=== PATIENT | female | born 1975 | race Native Hawaiian/Other Pacific Islander ===

== ENCOUNTER 2017-09-09 09:52 | Outpatient (CLI) | payer BC | END 2017-09-09 22:56 | disposition home or self-care (01) | LOC: US 09:52 | DX: R10.84 Generalized abdominal pain (principal); R10.2 Pelvic and perineal pain ==

== ENCOUNTER 2018-02-04 12:54 | Outpatient (CLI) | payer BC | END 2018-02-04 19:40 | disposition home or self-care (01) | LOC: MAMMO 12:54 | DX: Z12.31 Encounter for screening mammogram for malignant neoplasm of breast (principal) ==

== ENCOUNTER 2019-08-24 13:32 | Outpatient (CLI) | payer BC | END 2019-08-24 21:31 | disposition home or self-care (01) | LOC: LAB 13:32 | DX: N92.1 Excessive and frequent menstruation with irregular cycle (principal); R53.81 Other malaise; R53.83 Other fatigue | CPT/HCPCS: 82670; 83001; 84403 ==

== ENCOUNTER 2019-11-27 12:57 | Outpatient (CLI) | payer BC, OTHER | END 2019-11-27 23:30 | disposition home or self-care (01) | LOC: LAB 12:57 | DX: R19.7 Diarrhea, unspecified (principal); R11.0 Nausea; R51 Headache | CPT/HCPCS: 87635; G2023; U0002 ==

== ENCOUNTER 2020-01-02 08:23 | Outpatient (CLI) | payer BC | END 2020-01-02 20:34 | disposition home or self-care (01) | LOC: MAMMO 08:23 | DX: Z12.31 Encounter for screening mammogram for malignant neoplasm of breast (principal) ==

== ENCOUNTER 2021-04-16 14:09 | Outpatient (CLI) | payer BC | END 2021-04-16 19:19 | disposition home or self-care (01) | LOC: RAD 14:09 | PROVIDERS: ATTEND Nurse Practitioner Family | DX: M54.2 Cervicalgia (principal) ==

== ENCOUNTER → 2022-03-24 | Outpatient (CLI) | payer BC | LOC: CT 08:00 | PROVIDERS: ATTEND Nurse Practitioner Family | DX: R10.31 Right lower quadrant pain (principal) | CPT/HCPCS: Q9963 ==

== ENCOUNTER 2022-07-10 08:56 | Outpatient (CLI) | payer BC | END 2022-07-10 19:13 | disposition home or self-care (01) | LOC: MAMMO 08:56 | PROVIDERS: ATTEND Nurse Practitioner Family | DX: Z12.31 Encounter for screening mammogram for malignant neoplasm of breast (principal) ==

== ENCOUNTER 2022-10-19 08:10 | Outpatient (CLI) | payer BC | END 2022-10-19 19:36 | disposition home or self-care (01) | LOC: NM 08:10 | PROVIDERS: ATTEND Nurse Practitioner Family | DX: K21.9 Gastro-esophageal reflux disease without esophagitis (principal); R53.82 Chronic fatigue, unspecified; R10.31 Right lower quadrant pain; R11.0 Nausea | CPT/HCPCS: A9537 ==